=== PATIENT | male | born 1985 | race Two or more races ===

== ENCOUNTER 2022-05-17 20:03 | Emergency (ER) | payer MEDICAID ==
[~2022-05-17] VITALS: Ht 177.8 cm; Wt 77.0 kg
[2022-05-17 20:08] VITALS: BP 124/32
[2022-05-17] MEDS ORDERED: HALOPERIDOL LACTATE 5MG/ML VIAL IM ONE (20:30)
[2022-05-17] MEDS ORDERED: SODIUM CHLORIDE 0.9% 1,000 ML IV ONE (20:30)
[2022-05-17 20:44] LABS: BASOPHILS % 0.3 % (0.0-2.0); EOSINOPHILS % 1.1 % (0.0-5.0); HEMATOCRIT. 45.9 % (42.0-52.0); HEMOGLOBIN. 14.9 g/dL (14.0-18.0); LYMPHOCYTES % 14.8 % (20.0-50.0); MEAN CORPUSCULAR HEMOGLOBIN 23.8 pg (28.0-32.0); MEAN CORPUSCULAR VOLUME 73.3 fL (80.0-94.0); MONOCYTES % 7.6 % (2.0-8.0); NEUTROPHILS % 76.2 % (40.0-76.0); RED BLOOD CELL COUNT 6.26 mill/uL (4.7-6.1)
[2022-05-17 20:47] LABS: CHLORIDE 106 mEq/L (98-107)
[2022-05-17 20:48] LABS: PROTHROMBIN TIME 10.6 sec (9.6-11.0)
== END 2022-05-17 23:40 | disposition home or self-care (01) ==
LOC: ER 20:03
DX: R10.84 Generalized abdominal pain (principal); R11.10 Vomiting, unspecified; F12.10 Cannabis abuse, uncomplicated
CPT/HCPCS: 36415; 80053; 83690; 85025; 85610; 96360; 96372; 99283; J1630; J7030